=== PATIENT | female | born 1990 | race Caucasian/White ===

== ENCOUNTER → 2025-01-10 | Outpatient (CLI) | payer OTHER, SELFPAY | END | disposition home or self-care (01) | LOC: SL 14:42 | DX: R41.89 Other symptoms and signs involving cognitive functions and awareness (principal); R53.82 Chronic fatigue, unspecified; R40.0 Somnolence; G47.33 Obstructive sleep apnea (adult) (pediatric) | CPT/HCPCS: 95806 ==